=== PATIENT | male | born 1960 | race Caucasian/White ===

== ENCOUNTER 2016-09-05 14:32 | Emergency (ER) | payer OTHER, MEDICAID ==
[~2016-09-05] VITALS: Ht 182.9 cm; Wt 104.0 kg
[~2016-09-05 14:32] MED LIST: LORT5TAB PO; Z.0.NO CURRENT MEDS
--- NOTE | 2016-09-05 14:53 | PD ---
HPI Chief Complaint: Fall Time Seen by Provider: 14:53 Travel History International Travel<30 days: No Contact w/Intl Traveler<30days: No Traveled to known affect area: No History of Present Illness HPI 55-year-old male with a history of chronic pain in lower back, hips and neck presents to the emergency department for evaluation of low back pain status post fall from a ladder. The patient states that he was standing on a six-foot ladder looking at tree limbs he was about to cut down when the leg of the ladder gave out causing him to fall onto his lower back. Denies head trauma or loss of consciousness. States that he fell directly onto his lower back and is concerned he may have fractured something. States that he had a fall similar to this when he was a teenager. Denies any numbness or tingling, weakness, saddle anesthesia, bowel or bladder incontinence, neck pain, headache, lightheadedness, dizziness, nausea, vomiting. Denies any anticoagulation or alcohol use. No other complaints. [facility] Past Medical History Narrative Medical Chronic low back pain, chronic neck pain. Bilateral hip replacements Diminished Hearing: No Past Surgical History Joint Replacement: Yes (bilateral hips) Tonsillectomy: Yes Social History Alcohol Use: Yes (COUPLE OF BEERS A WEEK ALONG WITH CIGS STATED) Tobacco Use: Yes (2-3 CIGS A WEEK) Substance Use: No Allergies-Medications (Allergen,Severity, Reaction): Coded Allergies: Penicillin (Verified Allergy, Intermediate, PEELING OF HANDS AND FEET, ) Reported Meds & Prescriptions Reported Meds & Active Scripts Active Review of Systems Except as stated in HPI: all other systems reviewed are Neg Physical Exam Narrative GENERAL: Well-nourished and well-developed pleasant male patient in no acute distress. SKIN: No obvious lacerations or abrasions noted. HEAD: Normocephalic and atraumatic. No bony point tenderness or crepitus noted throughout the scalp and facial bones. EYES: No scleral icterus, injection, or drainage. PERRLA. EOMI. No hyphema present. ENT: No septal hematoma or hemotympanum noted. Oropharynx is clear and the airway is patent. NECK: Supple and the trachea is midline. No obvious deformities, crepitus, or midline tenderness noted. CARDIOVASCULAR: Regular rate and rhythm. RESPIRATORY: Breath sounds are equal bilaterally with no accessory muscle use, wheezing, rhonchi, or crackles. GASTROINTESTINAL: Abdomen is soft, non-tender, and nondistended. MUSCULOSKELETAL: No obvious deformities, swelling, cyanosis, or ecchymosis is present throughout the upper and lower extremities. Patient has full range of motion without any signs of neurovascular compromise. Strength 5/5 upper and lower extremities and equal bilaterally. BACK: There is some swelling and tenderness to palpation over the lumbar spine. No tenderness to palpation of thoracic spine or sacrum. NEUROLOGICAL: Awake, alert, and oriented. Normal speech and gait. Cranial nerves are grossly intact. Data Data Orders Ct Lumb Spine W/O Contrast (09/05/16 14:52) MDM Medical Decision Making Medical Screen Exam Complete: Yes Emergency Medical Condition: Yes Differential Diagnosis Fracture versus contusion versus discogenic pain versus muscle strain Narrative Course 55-year-old male presents to the emergency department for evaluation of low back pain status post fall from a 6 foot ladder onto his lower back. Patient is afebrile, vital signs are stable. He does have swelling and tenderness of the lumbar spine. No focal neurologic deficits. No head trauma or loss of consciousness. CT of the lumbar spine has been ordered and is pending. CT of the lumbar spine shows degenerative changes at L5-S1, no acute abnormality or fracture identified. Discussed all findings with the patient. He is given a copy of his CT report. He has Percocet and diclofenac at home for pain. Discussed supportive care. Advised follow-up with his PCP. Patient verbalizes understanding and agreement with treatment plan. Diagnosis Primary Impression: Contusion of lower back Qualified Code: S30.0XXA - Contusion of lower back, initial encounter Additional Impression: Fall from ladder Qualified Code: W11.XXXA - Fall from ladder, initial encounter Referrals: Primary Care Physician Patient Instructions: Contusion in Adults (ED), General Instructions Additional Instructions: Apply ice for 20 minutes on, 20 minutes off. Follow-up with your Primary Care Physician. Return to the ED for any acute worsening of symptoms. Med/Other Pt SpecificInfo: No Change to Meds Disposition: 01 DISCHARGE HOME Condition: Stable Sunitha Dillard Sep 05, 2016 14:53
--- NOTE | 2016-09-05 15:48 | RADRPT ---
EXAM DATE/TIME: 09/05/2016 15:11 [place] COMPARISON: No previous studies available for comparison. INDICATIONS : Fell off ladder today,back pain. RADIATION DOSE: 36.87 CTDIvol (mGy) MEDICAL HISTORY : Chronic back pain SURGICAL HISTORY : Orthopedic ENCOUNTER: Initial ACUITY: 1 day PAIN SCALE: 6/10 LOCATION: [facility] TECHNIQUE: Volumetric scanning of the lumbar spine was performed. Multiplanar reconstructions in the sagittal, coronal and oblique axial planes were performed. Using automated exposure control and adjustment of the mA and/or kV according to patient size, radiation dose was kept as low as reasonably achievable t o obtain optimal diagnostic quality images. FINDINGS: VERTEBRAE: Normal vertebral body height. Marked degenerative disease at the L5-S1 level with vacuum phenomenon, discogenic sclerosis and small subchondral cystic change. ALIGNMENT: No evidence of subluxation. T12-L1: The thecal sac has a normal diameter. No evidence of disc bulge or protrusion. The neural foramina are patent bilaterally. L1-L2: The thecal sac has a normal diameter. No evidence of disc bulge or protrusion. The neural foramina are patent bilaterally. L2-L3: The thecal sac has a normal diameter. No evidence of disc bulge or protrusion. The neural foramina are patent bilaterally. L3-L4: The thecal sac has a normal diameter. No evidence of disc bulge or protrusion. The neural foramina are patent bilaterally. L4-L5: The thecal sac has a normal diameter. No evidence of disc bulge or protrusion. The neural foramina are patent bilaterally. L5-S1: The thecal sac has a normal diameter. No evidence of disc bulge or protrusion. The neural foramina are patent bilaterally. CONCLUSION: No evidence of an acute fracture Marked degenerative disease at the L5-S1 level with vacuum phenomeno n, discogenic sclerosis and small subchondral cystic change David Guillory MD on September 05, 2016 at 15:45 Board Certified Radiologist. This report was verified electronically.
== END 2016-09-05 16:01 | disposition home or self-care (01) ==
LOC: EDBD → NEPB 14:32
DX: S30.0XXA Contusion of lower back and pelvis, initial encounter (principal); Z72.0 Tobacco use; Z96.643 Presence of artificial hip joint, bilateral; Z87.39 Personal history of other diseases of the musculoskeletal system and connective tissue; W11.XXXA Fall on and from ladder, initial encounter
CPT/HCPCS: 72131